=== PATIENT | male | born 1970 | race Caucasian/White ===

== ENCOUNTER 2019-08-07 | Emergency (ER) | payer OTHER | END 2019-08-07 16:10 | disposition T-BLAKE | DRG 605 | PROC: 3E0T3BZ Introduction of Anesthetic Agent into Peripheral Nerves and Plexi, Percutaneous Approach (ICD-10-PCS; principal; 2019-08-07) | DX: S61.311A Laceration without foreign body of left index finger with damage to nail, initial encounter (principal); S61.213A Laceration without foreign body of left middle finger without damage to nail, initial encounter; W31.2XXA Contact with powered woodworking and forming machines, initial encounter; Y92.149 Unspecified place in prison as the place of occurrence of the external cause ==